=== PATIENT | male | born 1980 | race Caucasian/White ===

== ENCOUNTER 2017-03-07 17:35 | Emergency (ER) | payer MEDICARE, OTHER ==
[~2017-03-07] VITALS: Ht 167.6 cm; Wt 110.0 kg
[2017-03-07 18:18] VITALS: BP 133/83; PULSE 100; RESP 18; TEMP 98.5; O2SAT 99
[2017-03-07] MEDS ORDERED: SODIUM CHLOR 0.9% 1000 ML INJ 1,000 ML IV SCH (18:39)
[2017-03-07] MEDS ORDERED: SODIUM CHLORIDE 0.9% FLUSH 10 ML FLUSH IV FLUSH PRN (18:45)
[2017-03-07] MEDS ORDERED: ONDANSETRON HCL 4 MG/2 ML VIAL IVP ONE (18:45)
--- NOTE | 2017-03-07 18:47 | PD ---
HPI Chief Complaint: Abdominal Pain Time Seen by Provider: 18:46 Travel History International Travel<30 days: No Contact w/Intl Traveler<30days: No Traveled to known affect area: No History of Present Illness HPI Patient comes in complaining of nausea, vomiting, diarrhea that began last night. Patient was patient states he began having cramping abdominal pain is epigastric region today. States that he was unable to keep water down today. Denies any blood in the vomit or stool. Denies any recent antibiotic use. Denies any radiation of the pain. Denies any fevers, chest pain, shortness of breath, numbness or tingling anywhere, or anything making it better. PFSH Past Medical History Kidney Stones: Yes Social History Alcohol Use: No Tobacco Use: No Substance Use: No Allergies-Medications (Allergen,Severity, Reaction): Coded Allergies: No Known Allergies (Unverified , 03/07/17) Reported Meds & Prescriptions Reported Meds & Active Scripts Active Tamiflu (Oseltamivir Phosphate) 75 Mg Cap 75 Mg PO BID 5 Days Bentyl (Dicyclomine HCl) 20 Mg Tab 20 Mg PO Q6HR Zofran Odt (Ondansetron Odt) 4 Mg Tab 4 Mg SL Q6HR PRN Reported Allopurinol 300 Mg Tab 300 Mg PO DAILY Cetirizine (Cetirizine HCl) 10 Mg Tab 10 Mg PO DAILY Review of Systems Except as stated in HPI: all other systems reviewed are Neg Physical Exam Narrative GENERAL: Well-developed, overly nourished, in no acute distress, and non-ill appearing. SKIN: Focused skin assessment warm and dry. HEAD: Atraumatic. Normocephalic. EYES: Pupils equal and round. EOMI. No scleral icterus. No injection or drainage. ENT: No nasal bleeding or discharge. Mucous membranes pink and moist. NECK: Trachea midline. Supple. No nuclear rigidity. CARDIOVASCULAR: Regular rate and rhythm. No murmur appreciated. RESPIRATORY: No accessory muscle use. No respiratory distress. Clear to auscultation. Breath sounds equal bilaterally. GASTROINTESTINAL: Abdomen soft, non-tender, nondistended. Hepatic and splenic margins not palpable. Normal bowel sounds 4. No pulsatile mass. MUSCULOSKELETAL: No obvious deformities. No clubbing. No cyanosis. No edema. Full range of motion. NEUROLOGICAL: Awake and alert. No obvious cranial nerve deficits. Motor grossly within normal limits. Normal speech. PSYCHIATRIC: Appropriate mood and affect; insight and judgment normal. Data Data Last Documented VS Vital Signs Date Time Temp Pulse Resp B/P Pulse Ox O2 Delivery O2 Flow Rate FiO2 03/07/17 19:30 96 03/07/17 18:18 98.5 100 18 133/83 Orders Complete Blood Count With Diff (03/07/17 18:39) Prothrombin Time / Inr (Pt) (03/07/17 18:39) Act Partial Throm Time (Ptt) (03/07/17 18:39) Iv Access Insert/Monitor (03/07/17 18:39) Ecg Monitoring (03/07/17 18:39) Oximetry (03/07/17 18:39) Ondansetron Inj (Zofran Inj) (03/07/17 18:45) Sodium Chlor 0.9% 1000 Ml Inj (Ns 1000 M (03/07/17 18:39) Sodium Chloride 0.9% Flush (Ns Flush) (03/07/17 18:45) Comprehensive Metabolic Panel (03/07/17 18:45) Dicyclomine (Bentyl) (03/07/17 20:30) Lipase (03/07/17 19:47) Labs Laboratory Tests Test 03/07/17 19:47 White Blood Count 10.0 TH/MM3 Red Blood Count 5.61 MIL/MM3 Hemoglobin 16.7 GM/DL Hematocrit 47.6 % Mean Corpuscular Volume 85.0 FL Mean Corpuscular Hemoglobin 29.8 PG Mean Corpuscular Hemoglobin 35.0 % Concent Red Cell Distribution Width 13.3 % Platelet Count 202 TH/MM3 Mean Platelet Volume 7.8 FL Neutrophils (%) (Auto) 88.4 % Lymphocytes (%) (Auto) 5.2 % Monocytes (%) (Auto) 5.4 % Eosinophils (%) (Auto) 0.8 % Basophils (%) (Auto) 0.2 % Neutrophils # (Auto) 8.8 TH/MM3 Lymphocytes # (Auto) 0.5 TH/MM3 Monocytes # (Auto) 0.5 TH/MM3 Eosinophils # (Auto) 0.1 TH/MM3 Basophils # (Auto) 0.0 TH/MM3 CBC Comment DIFF FINAL Differential Comment Prothrombin Time 10.7 SEC Prothromb Time International 1.0 RATIO Ratio Activated Partial 27.4 SEC Thromboplast Time Sodium Level 140 MEQ/L Potassium Level 4.0 MEQ/L Chloride Level 106 MEQ/L Carbon Dioxide Level 28.1 MEQ/L Anion Gap 6 MEQ/L Blood Urea Nitrogen 12 MG/DL Creatinine 0.87 MG/DL Estimat Glomerular Filtration 99 ML/MIN Rate Random Glucose 100 MG/DL Calcium Level 8.1 MG/DL Total Bilirubin 1.1 MG/DL Aspartate Amino Transf 26 U/L (AST/SGOT) Alanine Aminotransferase 42 U/L (ALT/SGPT) Alkaline Phosphatase 86 U/L Total Protein 6.7 GM/DL Albumin 3.4 GM/DL Lipase 125 U/L [facility] Medical Decision Making Medical Screen Exam Complete: Yes Emergency Medical Condition: Yes Differential Diagnosis Gastroenteritis, pancreatitis, electrolyte abnormality, dehydration, other Narrative Course Prior to discharge discussed all findings patient discussed possibly this being early symptoms of influenza however is unlikely without fever. After lengthy discussion patient is wanting a prescription for Tamiflu as he does not want to get his young child sick. The patient presented with abdominal pain vomiting and diarrhea. The patient appeared comfortable, hydrated and the abdominal exam was unremarkable and minimal to nontender to me, and without defined focal tenderness there was no evidence of an acute, surgical abdomen at this time. The patient did not appear clinically significantly dehydrated however appeared mildly volume depleted and was given IVF hydration. The patient subjectively and objectively noted improvement. The patient was able to tolerate fluids at discharge. There was no clinical evidence to support cholecystitis/cholelithiasis, pancreatitis, perforation of gastric ulcer, colitis, diverticulitis, peritonitis, obstruction , volvulus, early appendicitis, or hernial incarceration or strangulation at this time. There was no evidence to support vascular pathology such as AAA, mesenteric ischemia, nor significant GIB. There was also no clinical evidence by history, exam or risk factors to suggest atypical presentation of cardiac disease such as ACS, AMI or atypical angina. No evidence to suggest genitourinary etiology as well. During the course of the ED visit, the patient noted improvement. Clinical picture was discussed with the patient, as well as plan of care. The patient was instructed to follow up with their physician. Abdominal pain warnings were discussed with the patient. The patient is to return if worsens, pain worsens or changes, develop fever, inability to tolerate fluids with or without vomiting, unable to establish follow up or as needed. The patient agrees with plan. Patient in no obvious distress upon re-evaluation. All pertinent laboratory result(s) discussed with patient. I discussed patient with Dr. Cano prior to discharge, who is in agreement with plan of care and disposition. Patient was asked if they wanted to speak to my attending, which the patient did not wish to do at this time. Any questions/concerns in reference to patient diagnosis/ condition discussed and clarified prior to patient's discharge. Reinforced sheer importance of close follow up with patient's primary physician or primary care clinic. Instructed patient to return to ED immediately, if symptoms return/ worsen. Pt showed understanding of above instructions. Further instructions and recommendations were detailed in discharge paperwork. Pt ambulated without difficulty out of ED at discharge. Diagnosis Primary Impression: Epigastric cramping Additional Impression: Vomiting and diarrhea Patient Instructions: Acute Diarrhea (GEN), Epigastric Pain (ED), Gastroenteritis (DC), General Instructions Additional Instructions: Follow-up with your primary care physician in 2-3 days for evaluation. Take all medication as prescribed. Drink plenty of non-caffeinated and nonalcoholic fluids. Use [id number] Tylenol and/or ibuprofen as needed for any fevers and/or additional pain control. Follow instructions on the packaging. Return to the emergency department if symptoms get worse. Med/Other Pt SpecificInfo: Prescription(s) given Scripts Oseltamivir (Tamiflu)75 Mg Cap75 Mg PO BID 5 Days Ref 0 Prov:Christian Cano MD 03/07/17 Dicyclomine (Bentyl)20 Mg Tab20 Mg PO Q6HR #14 TAB Ref 0 Prov:Christian Cano MD 03/07/17 Ondansetron Odt (Zofran Odt)4 Mg Tab4 Mg SL Q6HR PRN (Nausea/Vomiting) #14 TAB Ref 0 Prov:Christian Cano MD 03/07/17 Disposition: 01 DISCHARGE HOME Condition: Stable Edson Juarez Mar 07, 2017 18:47
[2017-03-07 19:30] VITALS: O2SAT 96
[2017-03-07] MEDS ORDERED: CETI10 PO (19:36)
[2017-03-07] MEDS ORDERED: ALLO300T2 PO (19:36)
[2017-03-07 19:57] LABS: AUTOMATED NEUTROPHIL # 8.8 TH/MM3 (1.8-7.7); BASOPHIL % 0.2 % (0.0-2.0); EOSINOPHIL # 0.1 TH/MM3 (0-0.4); EOSINOPHIL % 0.8 % (0.0-4.0); HEMATOCRIT 47.6 % (39.0-51.0); HEMO FLAGS DIFF FINAL; LYMPH % 5.2 % (9.0-44.0); LYMPHOCYTE # 0.5 TH/MM3 (1.0-4.8); MEAN CORPUSCULAR HEMOGLOBIN 29.8 PG (27.0-34.0); MONO % 5.4 % (0.0-8.0); NEUT % 88.4 % (16.0-70.0); PLATELET COUNT 202 TH/MM3 (150-450); RED BLOOD COUNT 5.61 MIL/MM3 (4.50-5.90); RED CELL DISTRIBUTION WIDTH 13.3 % (11.6-17.2)
[2017-03-07 20:09] LABS: APTT (PATIENT) 27.4 SEC (24.3-30.1); PROTHROMBIN TIME - PATIENT 10.7 SEC (9.8-11.6)
[2017-03-07 20:27] LABS: ALKALINE PHOSPHATASE 86 U/L (45-117); ALT (GPT) 42 U/L (12-78); ANION GAP 6 MEQ/L (5-15); AST (GOT) 26 U/L (15-37); BICARBONATE 28.1 MEQ/L (21.0-32.0); BLOOD UREA NITROGEN 12 MG/DL (7-18); CHLORIDE 106 MEQ/L (98-107); GLOMERULAR FILTRATION RATE 99 ML/MIN (>89); SODIUM (NA) 140 MEQ/L (136-145); TOTAL BILIRUBIN ADULT 1.1 MG/DL (0.2-1.0)
[2017-03-07] MEDS ORDERED: DICYCLOMINE HCL 10 MG CAP PO ONE (20:30)
[2017-03-07] MEDS ORDERED: ZOFR4TAB3 SL (20:48)
[2017-03-07] MEDS ORDERED: BENT20TA PO (20:48)
[2017-03-07] MEDS ORDERED: OSEL75 PO (21:02)
== END 2017-03-07 21:36 | disposition home or self-care (01) ==
LOC: NEPD 17:35
DX: R10.13 Epigastric pain (principal); R11.2 Nausea with vomiting, unspecified; R19.7 Diarrhea, unspecified; Z87.442 Personal history of urinary calculi
CPT/HCPCS: 80053; 83690; 85025; 85610; 85730; 96361; 96374; 99284; J2405; J7030